=== PATIENT | male | born 1985 | race Two or more races ===

== ENCOUNTER 2022-06-05 00:04 | Emergency (ER) | payer OTHER ==
[~2022-06-05] VITALS: Ht 175.3 cm; Wt 143.0 kg
[~2022-06-05 00:04] MED LIST: NOCURR
[2022-06-05 05:16] LABS: MEAN CORPUSCULAR HEMOGLOBIN 30.2 pg (26.0-34.0); PLATELET COUNT (AUTO) 195 K/uL (150-450)
[2022-06-05 05:19] LABS: BASOPHILS % (AUTO) 0.3 % (0.0-2.0); EOSINOPHILS % (AUTO) 0 % (1.0-6.0); HEMATOCRIT 52.8 % (41-53); HEMOGLOBIN 17.5 g/dL (13.5-17.5); LYMPHOCYTES # (AUTO) 1.2 K/uL (1.0-4.8); LYMPHOCYTES % (AUTO) 6.3 % (22.0-44.0); MEAN CORPUSCULAR HGB CONC 33.1 G/dL (31.0-37.0); MEAN CORPUSCULAR VOLUME 91 fL (80-100); MONOCYTES % (AUTO) 5.2 % (2.0-9.0); NEUTROPHILS # (AUTO) 16.8 K/uL (1.8-7.7); RED BLOOD CELL COUNT(AUTO) 5.79 MIL/uL (4.50-5.90); RED CELL DISTRIBUTION WIDTH 13.6 % (11.5-14.5)
[2022-06-05 05:27] LABS: ANION GAP 9 mmol/L (8-16); CALCIUM, TOTAL 9.9 mg/dL (8.8-10.5); CARBON DIOXIDE 24 mmol/L (22-29); CHLORIDE 103 mmol/L (98-107); GLOMERULAR FILTR. RATE CALC > 60 mL/min (>60); GLUCOSE,RANDOM 132 mg/dL (70-110); POTASSIUM 4.4 mmol/L (3.5-5.1); SODIUM SERUM 136 mmol/L (136-145); UREA NITROGEN, BLOOD 18 mg/dL (7-18)
[2022-06-05 05:32] LABS: ACETAMINOPHEN 4 mcg/mL (10-30); ALANINE AMINOTRANSFERASE 29 U/L (12-78); ALBUMIN 4.3 g/dL (3.4-5.0); ALKALINE PHOSPHATASE 74 U/L (46-116); ASPARTATE AMINOTRANSFERASE 22 U/L (15-37); BILIRUBIN,TOTAL 0.6 mg/dL (0.1-1.0); TOTAL PROTEIN, SERUM 8.6 g/dL (6.4-8.2)
[2022-06-05 05:34] LABS: NEUTROPHILS % (AUTO) 88.2 % (40.0-70.0)
[2022-06-05 13:27] LABS: COVID AG,FIA SOURCE NASAL SWAB
[2022-06-05 13:40] LABS: AMPHET/METH SCREEN,URINE NEGATIVE (NEGATIVE); BARBITURATE SCREEN, URINE NEGATIVE (NEGATIVE); BENZODIAZEPINES SCREEN,URINE NEGATIVE (NEGATIVE); CANNABINOID SCREEN,URINE POSITIVE (NEGATIVE); COCAINE SCREEN,URINE NEGATIVE (NEGATIVE); METHADONE SCREEN, URINE NEGATIVE (NEGATIVE); OPIATE SCREEN,URINE POSITIVE (NEGATIVE)
[2022-06-05 13:42] LABS: PHENCYCLIDINE SCREEN,URINE NEGATIVE (NEGATIVE)
[2022-06-05] MEDS ORDERED: SODIUM CHLORIDE 0.9% 1,000 ML IV ONE (13:45)
[2022-06-05] MEDS ORDERED: MAGNESIUM SULFATE 2 GM, MVI, ADULT NO.1 WITH VIT K 10 ML, THIAMINE 100 MG, FOLIC ACID 1... IV ONE ×5 (14:15)
[2022-06-05] MEDS ORDERED: BISACODYL 10 MG RECTAL RECTAL SUPPOSITORY PR PRN (14:15)
[2022-06-05] MEDS ORDERED: ZOLPIDEM TARTRATE 5 MG TABLET PO PRN (14:15)
[2022-06-05] MEDS ORDERED: ACETAMINOPHEN 325 MG TABLET PO PRN (14:15)
[2022-06-05] MEDS ORDERED: MORPHINE SULFATE 2 MG/ML SYRINGE IVP PRN (14:15)
[2022-06-05] MEDS ORDERED: HYDROCODONE/ACETAMINOPHEN 5-325 MG TABLET PO PRN (14:15)
[2022-06-05] MEDS ORDERED: MAGNESIUM HYDROXIDE SUSPENSION 30 ML UDCUP PO PRN (14:15)
[2022-06-05] MEDS ORDERED: ONDANSETRON HCL 4 MG/2 ML VIAL IVP PRN (14:15)
[2022-06-05] MEDS: HEPARIN SODIUM,PORCINE 5,000 UNITS/ML VIAL SQ SCH ×2 (16:00→23:20)
[2022-06-05] MEDS: DOCUSATE SODIUM 100 MG CAPSULE PO SCH ×2 (20:05→20:12)
[2022-06-05 23:14] VITALS: BP 160/75
[2022-06-06] MEDS ORDERED: PANTOPRAZOLE SODIUM 40 MG DR TABLET PO SCH (09:00)
== END 2022-06-05 23:45 | disposition admitted as inpatient to this hospital (09) ==
LOC: EMS 00:04
DX: T40.601A Poisoning by unspecified narcotics, accidental (unintentional), initial encounter (principal); D72.829 Elevated white blood cell count, unspecified; F10.20 Alcohol dependence, uncomplicated; R41.82 Altered mental status, unspecified; Y92.89 Other specified places as the place of occurrence of the external cause; Z87.39 Personal history of other diseases of the musculoskeletal system and connective tissue; Z20.822 Contact with and (suspected) exposure to COVID-19
CPT/HCPCS: 99285; 96365; 70450; 71045; 96361; 87426; 80053; 82140; 83605; 85025; 87040; 93005; 96372; 36415; 80307 ×2; G0480; J3490 ×2; J3411; J1644; J3475; J7030; G0481